=== PATIENT | female | born 1995 ===

== ENCOUNTER 2021-01-04 06:03 | Inpatient (IN) | payer MEDICAID ==
[~2021-01-04] VITALS: Ht 162.6 cm; Wt 99.7 kg
[2021-01-04] MEDS ORDERED: ACETAMINOPHEN 325 MG TABLET PO PRN (07:30)
[2021-01-04] MEDS ORDERED: DOCUSATE 100 MG CAPSULE PO PRN (07:30)
[2021-01-04] MEDS ORDERED: ONDANSETRON ODT 4 MG PO PRN (07:30)
[2021-01-04] MEDS ORDERED: NICOTINE 14MG/24 HR PATCH.TD24 TD SCH (11:30)
[2021-01-04] MEDS ORDERED: POLYETHYLENE GLYCOL 17 GM PACKET NG PRN (11:30)
[2021-01-04] MEDS ORDERED: PLEASE ENTER HEIGHT AND WEIGHT MC SCH (13:30)
[2021-01-04] MEDS: PLEASE ENTER ALLERGIES MC SCH ×2 (13:30→17:24)
[2021-01-04 13:42] VITALS: BP 140/90
[2021-01-04] MEDS ORDERED: HYDROCHLOROTH12.5 MG PO (15:26)
[2021-01-04] MEDS ORDERED: AMLO-150 PO (15:26)
[2021-01-04] MEDS ORDERED: LISI40TA9 PO (15:26)
[2021-01-04] MEDS ORDERED: [UNRECOGNIZED DRUG - OTHER] (15:26)
[2021-01-04] MEDS ORDERED: CEPH750C9 PO (17:37)
[2021-01-04] MEDS ORDERED: AMLODIPINE 5 MG TABLET PO ONE (18:30)
[2021-01-04 19:05] VITALS: BP 130/92
[2021-01-04] MEDS: CEPHALEXIN 500 MG CAPSULE PO SCH (20:07)
[2021-01-05] MEDS: CEPHALEXIN 500 MG CAPSULE PO SCH ×4 (05:30→20:36)
[2021-01-05 07:04] LABS: CHOLESTEROL, TOTAL 230 mg/dL (140-239); TRIGLYCERIDES 253 mg/dL (50-200); VLDL CHOLESTEROL 51 mg/dL (0-25)
[2021-01-05 07:08] LABS: CHOL/HDL RATIO 4.6; HDL CHOL % 22 % (28-40); HDL CHOLESTEROL (DIRECT) 50 mg/dL (40-60); LDL CHOLESTEROL,CALCULATED 129 mg/dL (54-169); LDL/HDL RATIO 2.6 (0.5-3.0)
[2021-01-05 07:28] VITALS: BP 136/98
[2021-01-05] MEDS: NICOTINE 14MG/24 HR PATCH.TD24 TD SCH (08:32)
[2021-01-05] MEDS: AMLODIPINE 5 MG TABLET PO SCH (11:40)
[2021-01-05] MEDS: BUPROPION SR 100 MG TABLET PO SCH (13:07)
[2021-01-05 19:23] VITALS: BP 144/91
[2021-01-06] MEDS: CEPHALEXIN 500 MG CAPSULE PO SCH ×3 (06:13→16:33)
[2021-01-06 07:22] VITALS: BP 133/96
[2021-01-06] MEDS: AMLODIPINE 5 MG TABLET PO SCH (08:31)
[2021-01-06] MEDS: BUPROPION SR 100 MG TABLET PO SCH ×2 (08:31→11:24)
[2021-01-06] MEDS: NICOTINE 14MG/24 HR PATCH.TD24 TD SCH (08:33)
[2021-01-06 19:32] VITALS: BP 138/92
[2021-01-07 07:21] VITALS: BP 136/97
[2021-01-07] MEDS: BUPROPION SR 100 MG TABLET PO SCH ×2 (08:13→11:07)
[2021-01-07] MEDS: AMLODIPINE 5 MG TABLET PO SCH (08:13)
[2021-01-07] MEDS: NICOTINE 14MG/24 HR PATCH.TD24 TD SCH (08:13)
[2021-01-07] MEDS ORDERED: BUPR-173 PO (12:30)
[2021-01-07] MEDS ORDERED: NICO-486 TD (12:30)
[2021-01-07] MEDS ORDERED: AMLO-150 PO (12:30)
[2021-01-07 19:29] VITALS: BP 118/87
[2021-01-08 07:45] VITALS: BP 145/95
[2021-01-08] MEDS: NICOTINE 14MG/24 HR PATCH.TD24 TD SCH (08:47)
[2021-01-08] MEDS: AMLODIPINE 5 MG TABLET PO SCH (08:47)
[2021-01-08] MEDS: BUPROPION SR 100 MG TABLET PO SCH ×2 (08:47→12:39)
== END 2021-01-08 14:45 | disposition home or self-care (01) | DRG 885 ==
LOC: 3E 13:02
PROVIDERS: ADMIT Psychiatry & Neurology Psychosomatic Medicine; ATTEND Psychiatry & Neurology Psychosomatic Medicine
DX: F33.2 Major depressive disorder, recurrent severe without psychotic features (principal); F15.20 Other stimulant dependence, uncomplicated; R45.851 Suicidal ideations; F12.90 Cannabis use, unspecified, uncomplicated; F17.200 Nicotine dependence, unspecified, uncomplicated; I10 Essential (primary) hypertension; N30.90 Cystitis, unspecified without hematuria; K21.9 Gastro-esophageal reflux disease without esophagitis; Z79.899 Other long term (current) drug therapy
CPT/HCPCS: 36415; 71045; 80061; 84703; 93005